=== PATIENT | female | born 1955 | race Caucasian/White ===

== ENCOUNTER 2017-10-19 13:08 | Day surgery (SDC) | payer SELFPAY ==
[~2017-10-19 13:08] MED LIST: ceFAZolin 2 GM in Premix Bag 1 BAG IV SCH
[2017-10-19] MEDS ORDERED: Rocuronium 10 MG/ML 10 ML Syringe ONE (13:56)
[2017-10-19] MEDS ORDERED: fentaNYL 250 MCG/5 ML SDV ONE (13:56)
[2017-10-19] MEDS ORDERED: Neostigmine Methylsulfate 1 MG/ML 5 ML Syringe ONE (13:56)
[2017-10-19] MEDS ORDERED: Midazolam 1 MG/ML 2 ML SDV ONE (13:56)
[2017-10-19] MEDS ORDERED: Ondansetron 4 MG/2 ML SDV ONE (13:56)
[2017-10-19] MEDS ORDERED: Glycopyrrolate 0.2 MG/ML SDV ONE (13:56)
[2017-10-19] MEDS ORDERED: Lidocaine 2% 5 ML SDV ONE (13:56)
[2017-10-19] MEDS ORDERED: Propofol 200 MG/20 ML SDV ONE ×2 (13:56→16:34)
[2017-10-19] MEDS ORDERED: Lactated Ringers 1,000 ML IV SCH ×2 (14:30→17:00)
--- NOTE | 2017-10-19 14:33 | PCM.PREANE ---
Preanesthetic Assessment - Anesthesia/Transfusion/Family Hx Anesthesia History: Prior Anesthesia Without Reaction Family History of Anesthesia Reaction: No Transfusion History: Prior Transfusion Without Reaction Intubation History: Unknown - Review of Systems General: No Symptoms Pulmonary: No Symptoms Cardiovascular: No Symptoms Gastrointestinal: No Symptoms Neurological: No Symptoms Other: Reports: None - Physical Assessment Height: 1.7 m Weight: 77.111 kg ASA Class: 2 Mental Status: Alert & Oriented x3 Airway Class: Mallampati = 3 Dentition: Reports: Normal Dentition, Northwest(s) (x2 upper front) Thyro-Mental Finger Breadths: 2 Mouth Opening Finger Breadths: 2 ROM/Head Extension: Full Lungs: Clear to Auscultation, Normal Respiratory Effort Cardiovascular: Regular Rate, Regular Rhythm - Allergies Allergies/Adverse Reactions: Allergies Allergy/AdvReac Type Severity Reaction Status Date / Time No Known Allergies Allergy Verified 10/17/17 15:25 - Blood Blood Available: No - Anesthesia Plan Pre-Op Medication Ordered: None - Acknowledgements Anesthesia Type Planned: General Anesthesia Pt an Appropriate Candidate for the Planned Anesthesia: Yes Alternatives and Risks of Anesthesia Discussed w Pt/Guardian: Yes Pt/Guardian Understands and Agrees with Anesthesia Plan: Yes PreAnesthesia Questionnaire HEENT History: Reports: Other (See Below) Other HEENT History: wears glasses Cardiovascular History: Reports: Other (See Below) Other Cardiovascular History: states her blood pressure fluctuates Gastrointestinal History: Reports: None Genitourinary History: Reports: Renal Calculus, Other (See Below) Other Genitourinary History: states had a ruptured cyst outside of her left kidney SNOW BLOWER History: Reports: Musculoskeletal History: Reports: Fracture Other Musculoskeletal History: hx fx nose and rt wrist, presently left humerus fx. Hematologic History: Reports: Blood Transfusion(s), Other (See Below) Other Hematologic History: had transfusion after her ruptured cyst from her left kidney - Past Surgical History Head Surgeries/Procedures: Reports: None HEENT Surgical History: Reports: Naso-Sinus Surgery, Tonsillectomy Cardiovascular Surgical History: Reports: Varicose, Other (See Below) GI Surgical History: Reports: Bariatric Procedure, Cholecystectomy Other GI Surgeries/Procedures: hx gastric bypass Female Surgical History: Reports: Tubal Ligation - SUBSTANCE USE Smoking Status *Q: Never Smoker Recreational Drug Use History: No - HOME MEDS Home Medications: Home Meds Naproxen Sodium [Aleve] 1 tab PO ASDIRECTED PRN 10/17/17 [History] - CURRENT (IN HOUSE) MEDS Current Meds: Current Medications Cefazolin Sodium/Dextrose 2 gm (/ Premix) 50 mls @ 50 mls/hr IV ONETIME AMBROCIO Lactated Ringer's (Ringers, Lactated) 1,000 mls @ 125 mls/hr IV ASDIRECTED AMBROCIO Discontinued Medications Fentanyl (Sublimaze) Confirm Administered Dose 250 mcg .ROUTE .STK-MED ONE Stop: 10/19/17 13:57 Glycopyrrolate (Robinul) Confirm Administered Dose 0.4 mg .ROUTE .STK-MED ONE Stop: 10/19/17 13:57 Lidocaine (Xylocaine-Mpf 2%) Confirm Administered Dose 5 ml .ROUTE .STK-MED ONE Stop: 10/19/17 13:57 Midazolam HCl (Versed 1 Mg/Ml) Confirm Administered Dose 2 mg .ROUTE .STK-MED ONE Stop: 10/19/17 13:57 Neostigmine Methylsulfate (Neostigmine) Confirm Administered Dose 5 mg .ROUTE .STK-MED ONE Stop: 10/19/17 13:57 Ondansetron HCl (Zofran) Confirm Administered Dose 4 mg .ROUTE .STK-MED ONE Stop: 10/19/17 13:57 Propofol (Diprivan 20 Ml) Confirm Administered Dose 200 mg .ROUTE .STK-MED ONE Stop: 10/19/17 13:57 Rocuronium [place] (Zemuron) Confirm Administered Dose 100 mg .ROUTE .STK-MED ONE Stop: 10/19/17 13:57 Tranexamic Acid (Cyklokapron) 2,000 mg IV ONETIME ONE Stop: 10/19/17 13:01
[2017-10-19] MEDS ORDERED: Bupivacaine 0.5% 10 ML SDV ONE ×3 (14:44→16:41)
[2017-10-19] MEDS ORDERED: ePHEDrine 50 MG/ML SDV ONE (15:25)
[2017-10-19] MEDS ORDERED: Sodium Chloride 0.9% 20 ML ONE (15:26)
[2017-10-19] MEDS ORDERED: ceFAZolin 1 GM Vial ONE (15:26)
[2017-10-19] MEDS ORDERED: fentaNYL 100 MCG/2 ML SDV IVPUSH PRN (15:38)
[2017-10-19] MEDS ORDERED: Succinylcholine 200 MG/10 ML MDV ONE (15:57)
[2017-10-19] MEDS ORDERED: HYDROmorphone 2 MG/ML SDV ONE (15:58)
--- NOTE | 2017-10-19 16:31 | PCM.OPNOTE ---
- General Post-Op/Procedure Note Date of Surgery/Procedure: 10/19/17 Operative Procedure(s): ORIF left 3 part proximal humerus fracture Findings: comminution with greater tuberosity displacement Pre Op Diagnosis: 3 part left proximal humerus fracture Post-Op Diagnosis: same Anesthesia Technique: General ET Tube Primary Surgeon: Akshat Fitzgerald Mai Rotary Drill Operator: Mireya Harrington in mLs: 20 Complications: none Condition: Good
[2017-10-19] MEDS ORDERED: Morphine 2 MG/ML Syringe IVPUSH PRN (16:50)
[2017-10-19] MEDS ORDERED: traMADol 50 MG Tab PO PRN (16:50)
[2017-10-19] MEDS ORDERED: Acetaminophen/HYDROcodone 325-10 MG Tab PO PRN (16:50)
[2017-10-19] MEDS ORDERED: Ketorolac 30 MG/ML SDV IVPUSH PRN (16:50)
[2017-10-19] MEDS ORDERED: Ondansetron 4 MG/2 ML SDV IV PRN (16:50)
--- NOTE | 2017-10-19 17:37 | PCM.POSTAN ---
POST ANESTHESIA ASSESSMENT - MENTAL STATUS Mental Status: Alert, Oriented - RESPIRATORY Respiratory Status: Respiratory Rate WNL, Airway Patent, O2 Saturation Stable - CARDIOVASCULAR CV Status: Pulse Rate WNL, Blood Pressure Stable - GASTROINTESTINAL GI Status: No Symptoms - PAIN Pain Score: 5 - POST OP HYDRATION Hydration Status: Adequate & Stable - OBSERVATIONS Free Text/Narrative:: no anesthesia problems
--- NOTE | 2017-10-19 18:03 | PCM48HPAN ---
Post Anesthesia Note - EVALUATION WITHIN 48HRS OF ANESTHETIC Vital Signs in Normal Range: Yes Patient Participated in Evaluation: Yes Respiratory Function Stable: Yes Airway Patent: Yes Cardiovascular Function Stable: Yes Hydration Status Stable: Yes Pain Control Satisfactory: Yes Nausea and Vomiting Control Satisfactory: Yes Mental Status Recovered: Yes Resp Rate: 12
[2017-10-19] MEDS ORDERED: Docusate Sodium 100 MG Cap PO SCH (21:00)
--- NOTE | 2017-10-20 03:47 | OR ---
SURGEON: Akshat Darnell MD DATE OF PROCEDURE: 10/19/2017 HAND STONECUTTER: Mireya Harrington PA-C PREOPERATIVE DIAGNOSIS: Three-part left proximal humerus fracture. POSTOPERATIVE DIAGNOSIS: Three-part left proximal humerus fracture. OPERATION PERFORMED: Open reduction and internal fixation of left three-part proximal humerus fracture. ANESTHESIA: General with ET tube. COMPLICATIONS: None. ESTIMATED BLOOD LOSS: 20 mL. SPECIMENS: None. IMPLANTS: Milena 3-hole left proximal humerus plate, 2 distal 3.5 nonlocking screws and one 3.5 locking screw, 6 proximal locking screws, and 4 FiberWires in the tuberosity. INDICATIONS: The patient is a 62-year-old female who 2 weeks ago suffered a proximal humerus fracture with displacement. Discussed with her, due to the large amount of greater tuberosity displacement, the risks, benefits, and complications of open reduction and internal fixation, she wished to proceed. These include malunion, nonunion, infection, chronic pain, and need for postoperative protocol, and she wished to proceed. DESCRIPTION OF OPERATION: The patient was seen in preop area. Operative extremity was marked with the patient. She was transferred to the operating room. General anesthesia was induced. Endotracheal tube was placed. She received preop antibiotics with Ancef. She was placed in slight beach-chair position. Left upper extremity was prepped and draped in sterile fashion using alcohol followed by ChloraPrep. A formal time-out was taken identifying correct patient, procedure, and extremity. A 10 cm incision in the deltopectoral interval starting just inferior to the AC joint and lateral to the coracoid was made bluntly down the arm. Dissection was carried down to the subcutaneous tissues. Hemostasis was obtained. The interval between the deltoid and pectoralis major was found and cephalic vein, and this was pulled laterally, and then a blunt dissection underneath was done breaking up the bursal tissue, and then a retractor was placed exposing the fracture. There was essentially a nondisplaced fracture at the surgical neck and was moved as a unit. The tuberosity was displaced about over 1 cm. Two FiberWire sutures were placed into the tuberosity posterosuperiorly and then was able to reduce it down. Fracture started about a 5 mm posterior to the bicipital groove. It was able to be reduced anatomically and then held with a K- wire. Then, the suture was able to be passed through laterally to secure it, and then a 3-hole proximal humerus plate was decided upon and was placed in the anatomic position just posterior to the bicipital groove down about 7 mm beneath the top of the greater tuberosity. This was held in place with a K-wire, and the distal screw was placed. This confirmed placement under fluoroscopy, and then following this, 1 more screw was placed distally bicortically, and then 6 proximal locking screws were placed in the posterosuperior aspect of it, all unicortical, drilling only in slightly, and then pushing the drill bit in and then measuring. Another distal locking screw was placed. Final x-rays confirmed no penetration of any of the screws into the joint and near-anatomic reduction with slight shortening with anatomic reduction of the greater tuberosity. The 2 sutures that were in the greater tuberosity were then passed through the plate and secured down holding it in a very good position. Then, 2 more FiberWire sutures were placed in Avtar-Andrew fashion noting that the previous ones were also placed in Avtar-Andrew fashion into the rotator cuff and through the plate holding the greater tuberosity and rotator cuff down to the plate. The wound was then thoroughly irrigated. The subcutaneous tissues were closed with 2-0 Stratafix and skin with running 4-0 Monocryl with Steri-Strips. Xeroform and sterile dressing applied. The patient was extubated in the operating room and transferred to the recovery room in stable condition. Sponge and needle counts were correct at the end of the case. There were no complications. PLAN: The patient will be kept nonweightbearing in a sling. KASSIDY POPE /[id number]
--- NOTE | 2017-10-20 09:25 | CR ---
EXAMINATION: Left shoulder HISTORY: ORIF COMPARISON: 10/17/2017 TECHNIQUE: 3 views FINDINGS/IMPRESSION: Operative control films demonstrate screw and plate fixation of a proximal left humerus fracture. Position and alignment appear near anatomic.
== END 2017-10-19 19:00 | disposition home or self-care (01) ==
LOC: MW.SDS 13:08 → MW.MS 16:51 → MW.SDS 19:00
PROVIDERS: ATTEND Orthopaedic Surgery
DX: S42.232A 3-part fracture of surgical neck of left humerus, initial encounter for closed fracture (principal); E66.9 Obesity, unspecified; Z68.26 Body mass index [BMI] 26.0-26.9, adult; W19.XXXA Unspecified fall, initial encounter
CPT/HCPCS: 23615; 76000; A9270; C1713; J0330; J0690; J1170; J1885; J2250; J2405; J2704; J3010; J3490; J7120

== ENCOUNTER 2021-09-28 09:38 | Day surgery (SDC) | payer MEDICARE, OTHER ==
[~2021-09-28 09:38] MED LIST changes: +Lactated Ringers 1,000 ML IV SCH; +Propofol 200 MG/20 ML SDV ONE; -ceFAZolin 2 GM in Premix Bag 1 BAG IV SCH; +fentaNYL 100 MCG/2 ML SDV ONE
[2021-09-28] MEDS ORDERED: Propofol 200 MG/20 ML SDV ONE (12:00)
[2021-09-28] MEDS ORDERED: Lactated Ringers 1,000 ML IV SCH ×2 (13:00→13:45)
== END 2021-09-28 13:26 | disposition home or self-care (01) ==
LOC: MW.SDS 09:38
PROVIDERS: ATTEND Surgery
DX: D50.9 Iron deficiency anemia, unspecified (principal); K29.50 Unspecified chronic gastritis without bleeding; I82.409 Acute embolism and thrombosis of unspecified deep veins of unspecified lower extremity; Z79.2 Long term (current) use of antibiotics; Z79.899 Other long term (current) drug therapy; Z98.890 Other specified postprocedural states; Z90.49 Acquired absence of other specified parts of digestive tract; Z87.81 Personal history of (healed) traumatic fracture; Z98.84 Bariatric surgery status
CPT/HCPCS: 43239; 45378; J2704; J3010; J7120; 00813; 88305

== ENCOUNTER 2024-09-30 10:28 | Emergency (ER) | payer MEDICARE, OTHER ==
[2024-09-30] MEDS: Acetaminophen/HYDROcodone 325-5 MG Tab PO ONE (11:07)
[2024-09-30] MEDS: Orphenadrine 60 MG/2 ML Inj IM ONE (11:08)
[2024-09-30] MEDS: Ketorolac 30 MG/ML SDV IM ONE (11:08)
== END 2024-09-30 12:19 | disposition home or self-care (01) ==
LOC: MW.ED 10:28
DX: M43.6 Torticollis (principal); Z79.899 Other long term (current) drug therapy; Z75.3 Unavailability and inaccessibility of health-care facilities
CPT/HCPCS: 96372; 99283; A9270; J1100; J1885; J2360; 99284

== ENCOUNTER 2024-10-28 14:14 | Emergency (ER) | payer MEDICARE, OTHER ==
[2024-10-28] MEDS ORDERED: Sodium Chloride 0.9% 2.5 ML Syringe FLUSH PRN (14:15)
[2024-10-28] MEDS ORDERED: Sodium Chloride 0.9% 10 ML Syringe FLUSH PRN (14:15)
[2024-10-28 14:54] LABS: BASOPHILS ABSOLUTE AUTO 0.02 K/uL (0.00-0.20); BASOPHILS PERCENT AUTO 0.3 % (0.0-1.0); EOSINOPHILS ABSOLUTE AUTO 0.07 K/uL (0.00-0.45); EOSINOPHILS PERCENT AUTO 1.1 % (0.0-6.0); IMMATURE GRAN ABSOLUTE AUTO 0.01 K/uL (0.00-0.05); IMMATURE GRAN PERCENT AUTO 0.2 % (0.0-0.4); LYMPHOCYTES ABSOLUTE AUTO 0.97 K/uL (1.00-4.80); LYMPHOCYTES PERCENT AUTO 15.0 % (24.0-44.0); MEAN PLATELET VOLUME 9.0 fL (9.4-12.3); MONOCYTES ABSOLUTE AUTO 1.16 K/uL (0.00-0.80); MONOCYTES PERCENT AUTO 18.0 % (0.0-8.0); NEUTROPHILS ABSOLUTE AUTO 4.22 K/uL (1.80-7.70); NEUTROPHILS PERCENT AUTO 65.4 % (41.0-71.0); NRBC ABSOLUTE 0.00 K/uL (0.00-0.02); NRBC PERCENT 0.0 /100WBC (0.0-0.2); PLATELET COUNT,PLT 184 K/uL (150-400); RED BLOOD CELL COUNT 3.79 M/uL (4.10-5.30); WHITE BLOOD CELL COUNT,WBC 6.45 K/uL (3.9-11.3)
[2024-10-28 15:07] LABS: INR 0.99 (0.86-1.11)
[2024-10-28 15:25] LABS: A/G RATIO 0.9 (0.9-1.6); ALANINE AMINOTRANSFERASE,ALT 15 IU/L (14-63); ASPARTATE AMNIOTRANSFERASE,AST 17 IU/L (15-37); BILIRUBIN TOTAL 1.0 mg/dL (0.2-1.0); BLOOD UREA NITROGEN,BUN 14 mg/dL (7.0-18.0); CARBON DIOXIDE,CO2 25.9 mmol/L (21.0-32.0); CHLORIDE,CL 100 mmol/L (98-107); CREATININE 0.6 mg/dL (0.6-1.0); GLUCOSE RANDOM 100 mg/dL (74-106); POTASSIUM,K 3.6 mmol/L (3.5-5.1); PRO B-TYPE NATRIUR PEPT,BNPPRO 214 pg/mL (0-125); PROTEIN TOTAL,TP 7.3 g/dL (6.4-8.2); SODIUM,NA 137 mmol/L (136-145)
[2024-10-28 15:39] LABS: ESTIMATED GFR 98 mL/min (>60)
[2024-10-28] MEDS: Alum Hydrox/Mag Hydrox/Simeth 15 ML, Lidocaine 2% 5 ML PO ONE (15:49)
== END 2024-10-28 17:27 | disposition home or self-care (01) ==
LOC: MW.ED 14:14
DX: R07.2 Precordial pain (principal); Z75.3 Unavailability and inaccessibility of health-care facilities; Z79.899 Other long term (current) drug therapy
CPT/HCPCS: 36415; 71045; 80053; 83690; 83735; 83880; 84484; 85025; 85610; 93005; 99285; A9270; 93010; 99284